=== PATIENT | female | born 1990 | race Caucasian/White ===

== ENCOUNTER → 2016-03-27 | Outpatient (CLI) | payer OTHER ==
[~2016-03-27] MED LIST: MTR600X PO; OXYC-57 PO; PRENTAB26 PO
[2016-03-27 15:00] LABS: URINE APPEARANCE CLEAR (CLEAR); URINE BILIRUBIN NEG (NEG); URINE COLOR YELLOW; URINE EPITHELIAL CELL AUTO >30 /lpf (0-5); URINE NITRITE NEG (NEG); URINE PH 7.5 (4.5-7.5); UROBILINOGEN NEG (NEG)
[2016-03-27 15:09] LABS: MANUAL MICROSCOPIC REQUIRED? NO; REVIEW REQ? NO
== END | disposition home or self-care (01) ==
LOC: C.LABSPEC 13:48
PROVIDERS: ATTEND Obstetrics & Gynecology
DX: Z34.00 Encounter for supervision of normal first pregnancy, unspecified trimester (principal)

== ENCOUNTER → 2016-03-28 | Outpatient (CLI) | payer OTHER | END | disposition home or self-care (01) | LOC: C.PAPS 09:20 | PROVIDERS: ATTEND Obstetrics & Gynecology | DX: Z34.01 Encounter for supervision of normal first pregnancy, first trimester (principal); R87.612 Low grade squamous intraepithelial lesion on cytologic smear of cervix (LGSIL) ==

== ENCOUNTER → 2016-03-28 | Outpatient (CLI) | payer OTHER ==
[2016-03-28 14:41] LABS: BASO % 0.1 %; BASO ABS # 0.01 K/uL (0-0.2); COMPLETE YES; EOS % 1.2 %; HEMATOCRIT 36.6 % (37-47); IG% 0.4 %; LYMPH % 19.3 %; LYMPH ABS # 1.49 K/uL (1.2-3.4); MEAN CELL VOLUME 86.1 fL (80-100); MEAN CORPUSCULAR HEMOGLOBIN 29.2 pg (25-34); MEAN CORPUSCULAR HGB CONC 33.9 g/dl (32-36); MEAN PLATELET VOLUME 12.6 fL (7.4-10.4); MONO % 4.7 %; NEUT % 74.3 %; PLATELET COUNT 230 K/uL (130-400); RED BLOOD COUNT 4.25 M/uL (4.2-5.4); WHITE BLOOD COUNT 7.71 K/uL (4.8-10.8)
[2016-03-31 00:51] LABS: CHLAMYDIA TRACH RNA*** NOT DETECTED (NOT DETECTED); GC (NEIS GONORRHOEAE)RNA** NOT DETECTED (NOT DETECTED)
== END | disposition home or self-care (01) ==
LOC: C.LAB1850 12:40
PROVIDERS: ATTEND Obstetrics & Gynecology
DX: Z34.00 Encounter for supervision of normal first pregnancy, unspecified trimester (principal)

== ENCOUNTER → 2016-06-07 | Outpatient (CLI) | payer OTHER ==
[2016-06-07 12:52] LABS: HEMATOCRIT 34.2 % (37-47)
[2016-06-07 13:16] LABS: GTGD 50 Grams
== END | disposition home or self-care (01) ==
LOC: C.LAB1850 11:39
PROVIDERS: ATTEND Obstetrics & Gynecology
DX: Z34.03 Encounter for supervision of normal first pregnancy, third trimester (principal)

== ENCOUNTER → 2016-06-07 | Outpatient (CLI) | payer OTHER ==
[2016-06-07 15:10] LABS: URINE APPEARANCE CLOUDY (CLEAR); URINE BILIRUBIN NEG (NEG); URINE COLOR YELLOW; URINE EPITHELIAL CELL AUTO >30 /lpf (0-5); URINE NITRITE NEG (NEG); URINE SPECIFIC GRAVITY 1.017 (1.000-1.030); UROBILINOGEN NEG (NEG)
[2016-06-07 15:17] LABS: MANUAL MICROSCOPIC REQUIRED? NO; REVIEW REQ? NO
== END | disposition home or self-care (01) ==
LOC: C.LABSPEC 14:05
PROVIDERS: ATTEND Obstetrics & Gynecology
DX: Z34.03 Encounter for supervision of normal first pregnancy, third trimester (principal)

== ENCOUNTER → 2016-07-30 | Outpatient (CLI) | payer OTHER, BC | END | disposition home or self-care (01) | LOC: C.LABSPEC 17:44 | PROVIDERS: ATTEND Obstetrics & Gynecology | DX: Z34.03 Encounter for supervision of normal first pregnancy, third trimester (principal) ==

== ENCOUNTER 2016-08-27 03:05 | Inpatient (IN) | payer OTHER, BC ==
[~2016-08-27] VITALS: Ht 170.2 cm; Wt 90.5 kg
[2016-08-28] MEDS ORDERED: LACTATED RINGER'S 1000ML 1,000 ML IV PRN (11:48)
[2016-08-28] MEDS ORDERED: PRENTAB26 PO (12:23)
[2016-08-28 12:24] VITALS: Ht 170.2 cm; Wt 90.5 kg
[2016-08-28 12:37] LABS: HEMATOCRIT 36.5 % (37-47); MEAN CELL VOLUME 84.7 fL (80-100); MEAN CORPUSCULAR HEMOGLOBIN 28.1 pg (25-34); MEAN CORPUSCULAR HGB CONC 33.2 g/dl (32-36); PLATELET COUNT 209 K/uL (130-400); RED BLOOD COUNT 4.31 M/uL (4.2-5.4); WHITE BLOOD COUNT 12.21 K/uL (4.8-10.8)
[2016-08-28] MEDS: LACTATED RINGER'S 1000ML 1,000 ML IV SCH ×2 (12:44→19:26)
[2016-08-28] MEDS ORDERED: PENICILLIN G POTASSIUM IV 6 MU in DEXTROSE 5% 250ML 250 ML IV ONE (12:45)
[2016-08-28] MEDS: PENICILLIN G POTASSIUM IV 3 MU in DEXTROSE 5% 100ML 100 ML IV PRN ×2 (16:37→20:35)
[2016-08-28] MEDS ORDERED: BUPIVACAINE 0.25% 30 ML VIAL ONE (18:48)
[2016-08-28] MEDS ORDERED: EpHEDrine SULFATE INJ 50 MG/ML AMP ONE (18:48)
[2016-08-28] MEDS ORDERED: FENTANYL CITRATE INJ 50 MCG/1 ML 2 ML VIAL ONE (18:49)
[2016-08-28] MEDS ORDERED: FENTANYL 2MCG/ML ROPIV 1.25MG/ML 100ML BAG EPI ONE (18:49)
[2016-08-28] MEDS ORDERED: NALOXONE HCL INJ 1 MG in SODIUM CHLORIDE 0.9% 1000ML 1,000 ML IV PRN (19:26)
[2016-08-28] MEDS ORDERED: LACTATED RINGER'S 1000ML 500 ML IV PRN (19:26)
[2016-08-28] MEDS ORDERED: DiphenhydrAMINE HCL 50 MG/ML VIAL IV PRN (19:30)
[2016-08-28] MEDS ORDERED: FENTANYL 2MCG/ML ROPIV 1.25MG/ML 100ML BAG EPI PRN (19:30)
[2016-08-28] MEDS ORDERED: NALOXONE HCL INJ 0.4 MG/1 ML VIAL/CARP IV PRN (19:30)
[2016-08-28] MEDS ORDERED: EpHEDrine SULFATE INJ 50 MG/ML AMP IV PRN (19:30)
[2016-08-28] MEDS ORDERED: NALBUPHINE HCL INJ 10 MG/ML AMP IV PRN (19:30)
[2016-08-28] MEDS ORDERED: ONDANSETRON INJ 2 MG/ML 2 ML VIAL IV PRN (19:30)
[2016-08-28] MEDS ORDERED: OXYTOCIN 30 UNITS/500ML NSS IV ONE (23:06)
[2016-08-29] VITALS (23 sets, daily range): BP systolic 113–124; BP diastolic 61–79; PULSE 74–88; TEMP 36.6–37; O2SAT 94–98
[2016-08-29] MEDS: PENICILLIN G POTASSIUM IV 3 MU in DEXTROSE 5% 100ML 100 ML IV PRN (00:46)
[2016-08-29] MEDS ORDERED: CITRIC ACID/SODIUM CITRATE 15 ML UDC ONE (01:25)
[2016-08-29] MEDS ORDERED: LACTATED RINGER'S 1000ML 1,000 ML IV SCH (01:26)
[2016-08-29] MEDS ORDERED: CITRIC ACID/SODIUM CITRATE 15 ML UDC PO ONE (01:30)
[2016-08-29] MEDS ORDERED: LIDOCAINE/EPINEPHRINE 2% 1:200,000 20 ML SDV ONE (01:32)
[2016-08-29] MEDS ORDERED: FENTANYL CITRATE INJ 50 MCG/1 ML 2 ML VIAL ONE (01:32)
[2016-08-29] MEDS ORDERED: CEFAZOLIN IV 2,000 MG in DEXTROSE 5% 50ML 50 ML IV STA (01:33)
[2016-08-29] MEDS ORDERED: OXYTOCIN INJ 10 UNITS/ML VIAL ONE ×2 (01:33→02:08)
[2016-08-29] MEDS ORDERED: MoRPHine SULFATE PF 1 MG/ML 10 ML AMP/VIAL ONE (01:33)
[2016-08-29] MEDS ORDERED: ONDANSETRON INJ 2 MG/ML 2 ML VIAL ONE (02:08)
[2016-08-29] MEDS ORDERED: PHENYLEPHRINE 100MCG/ML 5ML SYR ONE (02:12)
--- NOTE | 2016-08-29 02:40 | HISTORY & PHYSICAL EXAMINATION ---
DATE OF ADMISSION: 08/29/2016 PRINCIPAL DIAGNOSES: Intrauterine at 40 weeks' gestation, arrest of descent. PRINCIPAL PROCEDURE: Primary low transverse cervical section. HISTORY OF PRESENT ILLNESS: The patient is a 26-year-old G1, P0 white female with EDC of 08/27/2016 who presented with prodromal labor over the evening of 08/28/2016. She presented to the office for her regular OB checkup and was noted to be 6 cm at noon. She progressed slowly over the day. She was trying for an unmedicated . She had finally got an epidural at approximately 2100 hours. Membranes were ruptured at 8-9 cm for clear fluid. She progressed to full dilation and pushed for 3 hours. The presenting part descended to +2 station. Vacuum was attempted through 3 contractions with absolutely no change in the baby's descent. It was felt prudent at this point to proceed with low transverse cervical section. The patient and her understand the procedure and indications and she is willing to proceed. PAST MEDICAL HISTORY: Unremarkable. PAST SURGICAL HISTORY: none ALLERGIES: She has no known drug allergies. MEDICATIONS: vitamins. OBSTETRIC AND GYNECOLOGIC HISTORY: Periods are regular every 28 days. No history of PID, VD or herpes. She did have low-grade FRANCISCO on her Pap smear. SOCIAL HISTORY: She does not smoke or drink. FAMILY HISTORY: Noncontributory. HISTORY: Blood type is O negative, antibody screen is negative, RPR is nonreactive, rubella is immune, hepatitis is negative. HIV is negative. Chlamydia and GC were negative. Anatomy was complete and normal at 20 weeks Hemoglobin at 28 weeks is 11.4 and hematocrit 34.2. She did receive RhoGAM . Her group B strep was positive. She did receive adequate treatment for her group B strep carrier status. PHYSICAL EXAMINATION: GENERAL: She is a well-nourished, well-developed white female in some distress from pushing. LUNGS: Clear to auscultation. HEART: Regular rate and rhythm. ABDOMEN: Gravid and consistent with a term in size. There is no hepatosplenomegaly or masses palpable. PELVIC: The presenting part is at +2 station with caput. There is 1+ edema of the lower extremities and ankles. ASSESSMENT: A 26-year-old, with spontaneous labor at 40 weeks' with arrest of descent at +2 station and failed vacuum. Proceed with low transverse cervical section. Please see the orders for further directions. MTDD
[2016-08-29] MEDS ORDERED: SUPERCREAM 0.870 % 15GM JAR EXT PRN (03:00)
[2016-08-29] MEDS ORDERED: CONTINUE MEDICATION ONE (03:00)
[2016-08-29] MEDS ORDERED: SENNA 8.6 MG TAB PO PRN (03:00)
[2016-08-29] MEDS ORDERED: NO NARCOTICS OR SEDATIVES SCH (03:00)
[2016-08-29] MEDS ORDERED: MoRPHine SULFATE 2 MG/ML CARP IV PRN (03:00)
[2016-08-29] MEDS ORDERED: MoRPHine SULFATE PF 1 MG/ML 10 ML AMP/VIAL EPI PRN (03:00)
[2016-08-29] MEDS ORDERED: MEPERIDINE HCL 25 MG/ML CARP IV PRN (03:00)
[2016-08-29] MEDS ORDERED: MAGNESIUM HYDROXIDE SUSP 30 ML UDC PO PRN (03:00)
[2016-08-29] MEDS ORDERED: LANOLIN OINT EXT PRN ×2 (03:00)
[2016-08-29] MEDS ORDERED: OXYTOCIN INJ 20 UNITS in LACTATED RINGER'S 1000ML 1,000 ML IV SCH (03:30)
[2016-08-29] MEDS ORDERED: EpHEDrine SULFATE INJ 50 MG/ML AMP ONE (03:33)
[2016-08-29] MEDS: KETOROLAC TROMETHAMINE 30 MG/ML VIAL IV. PRN ×2 (06:30→16:24)
[2016-08-29 06:33] LABS: BASO % 0.1 %; BASO ABS # 0.01 K/uL (0-0.2); COMPLETE YES; EOS % 0.1 %; HEMATOCRIT 31.6 % (37-47); IG% 0.3 %; LYMPH % 5.8 %; LYMPH ABS # 1.11 K/uL (1.2-3.4); MEAN CELL VOLUME 83.4 fL (80-100); MEAN CORPUSCULAR HEMOGLOBIN 27.7 pg (25-34); MEAN CORPUSCULAR HGB CONC 33.2 g/dl (32-36); MEAN PLATELET VOLUME 11.8 fL (7.4-10.4); MONO % 5.5 %; NEUT % 88.2 %; PLATELET COUNT 186 K/uL (130-400); RED BLOOD COUNT 3.79 M/uL (4.2-5.4); WHITE BLOOD COUNT 18.99 K/uL (4.8-10.8)
[2016-08-29] MEDS: DOCUSATE SODIUM 100 MG CAP PO SCH ×2 (07:38→20:37)
[2016-08-29] MEDS: PRENATAL VITAMIN TAB PO SCH (07:39)
[2016-08-29] MEDS: SIMETHICONE 80 MG CHEW PO SCH ×4 (07:39→20:37)
--- NOTE | 2016-08-29 07:45 | Progress Note ---
Subjective Aug 29, 2016. Subjective conversation w/ patient, physical exam Voiding: bell catheter in place Passing Gas: Yes Diet Tolerance: Clear Liquids Lochia: Moderate Feeding Type: Breast Feeding Comment: had epidural ascend to cause swallowing difficulty & couldn't move her arms.nausea has resolved. now has full use of arms & legs, can swallow without difficulty Review of Systems Constitutional: No fever, No chills, No sweats, No weight loss, No weakness, No fatigue, No problem reported Breast: No see HPI, No breast lump, No change in shape, No nipple discharge, No breast pain, No problem reported Objective Vital Signs Date Time Temp Pulse Resp B/P (MAP) Pulse Ox O2 Delivery O2 Flow Rate FiO2 08/29/16 05:20 94 Room Air 08/29/16 05:20 37.0 83 18 116/62 (80) 94 Room Air Physical Exam General Appearance: WELL-APPEARING, NO APPARENT DISTRESS Abdomen: soft Fundus: Firm, Non-Tender, Relation to Umbilicus (at U) Incision Description: Clean, Dry & Intact Extremities: no calf tenderness Laboratory Results Last 24 Hours Test 08/28/16 12:23 08/29/16 06:20 White Blood Count 12.21 K/uL 18.99 K/uL Red Blood Count 4.31 M/uL 3.79 M/uL Hemoglobin 12.1 g/dL 10.5 g/dL Hematocrit 36.5 % 31.6 % Mean Corpuscular Volume 84.7 fL 83.4 fL Mean Corpuscular Hemoglobin 28.1 pg 27.7 pg Mean Corpuscular Hemoglobin Concent 33.2 g/dl 33.2 g/dl RDW Standard Deviation 44.3 fL 43.8 fL RDW Coefficient of Variation 14.3 % 14.3 % Platelet Count 209 K/uL 186 K/uL Mean Platelet Volume 12.0 fL 11.8 fL Neutrophils (%) (Auto) 88.2 % Lymphocytes (%) (Auto) 5.8 % Monocytes (%) (Auto) 5.5 % Eosinophils (%) (Auto) 0.1 % Basophils (%) (Auto) 0.1 % Neutrophils # (Auto) 16.75 K/uL Lymphocytes # (Auto) 1.11 K/uL Monocytes # (Auto) 1.05 K/uL Eosinophils # (Auto) 0.01 K/uL Basophils # (Auto) 0.01 K/uL Immature Granulocyte % (Auto) 0.3 % Immature Granulocyte # (Auto) 0.06 K/uL Assessment and Plan Day#: 1 Continue Routine Care: stable course s/p LTCS at 0100 last night GBS (+) continue current care plan.
--- NOTE | 2016-08-29 09:11 | OPERATIVE REPORT ---
DATE OF OPERATION: 08/29/2016 SURGEON: Luisa Mei MD ORGAN TUNER: Lara Buckley RN. PREOPERATIVE DIAGNOSES: Intrauterine at 40 weeks and arrest of descent. POSTOPERATIVE DIAGNOSES: Same plus delivery of a viable female , 7 pounds 6 ounces. PRINCIPAL PROCEDURE: Primary low transverse cervical section. ANESTHESIA: Epidural. BLOOD LOSS: 600 mL. HISTORY: The patient is a 26-year-old G1, P0 white female, EDC of 08/27/2016, who presented to our office for her scheduled OB visit and was found to be 6-7 cm dilated. This was at noon on 08/28/2016. She was planning a unmedicated . Her members had not ruptured. She was GBS positive and she did receive adequate prophylaxis for her GBS positive status. She progressed 8 cm dilated and requested epidural analgesia. Membranes were ruptured for clear fluid at this point. She then progressed to full dilation. She pushed for 3 hours. The vertex did not descent below +2 station. Vacuum was applied without any popoffs through 3 contractions with no change in the descent of the head. At this point, it was felt prudent to proceed with section. This was discussed with the and the patient and they are willing to proceed. GROSS FINDINGS: Uterus is gravid and consistent with a term in size. Bilateral fallopian tubes and ovaries are grossly normal. Uterus is gravid and without any abnormalities. DESCRIPTION OF PROCEDURE: After the patient received adequate epidural anesthesia, she was prepped and draped in the usual sterile fashion. A low transverse skin incision was made with the scalpel and carried to the fascia with the same scalpel. The fascial incision was then extended with Cesar scissors. The edges were grasped with Carey clamps and the underlying rectus muscles bluntly and sharply dissected off the overlying fascia. The rectus muscles were bluntly divided along the midline and the underlying peritoneum elevated and entered bluntly. The bladder was then taken down off the anterior surface of the uterus using Metzenbaum scissors and placed behind the bladder blade. The lower uterine segment was entered with a scalpel and extended transversely. The infant was in the deep pelvis and transverse position, occiput to the patient's left. It was brought up through to the uterine incision and delivered with moderate fundal pressure. Mouth and nasopharynx were suctioned upon delivery. Cord was clamped and cut and the infant was handed off to Dr. Alvarado, who was in attendance as photovoltaic solar cell designer. The placenta was manually removed and the uterus exteriorized and covered with a clean lap sponge. Some retained membranes were removed. The rest of the uterine cavity was noted to be clear of any other tissue or membranes. The uterus was then closed in 2 layers in a running locking imbricating fashion. There was slight extension inferiorly on the right side of the uterine incision. Additional [id number] stitch at the right corner was needed to assure hemostasis. At this point, hemostasis was noted to be excellent. The posterior cul-de-sac was irrigated with normal saline. The incision was examined once more and found to continue to have excellent hemostasis. The gutters were explored and found to be free of any clot or fluid. The incision was examined once more after the uterus was placed back into the abdominal cavity and hemostasis continued to be excellent. The rectus muscles were brought together in the midline with individual stitches of 0 Monocryl. The fascia was closed in a running fashion with 0 Vicryl. Skin edges were reapproximated using a subcuticular stitch of 4-0 Vicryl. Urine was slightly pink tinge at the end of the case. Otherwise, there was 100 mL of urine in the Raymond catheter bag. Mother and were doing well after delivery. I attest to the content of the Intraoperative Record and any orders documented therein. Any exception s are noted below.
--- NOTE | 2016-08-29 11:01 | Anesthesiology Progress Note ---
Anesthesia Post Op Note Date & Time Aug 29, 2016 at 11:01 Vital Signs Pain Intensity: 0.0 Vital Signs Past 12 Hours Date Time Temp Pulse Resp B/P (MAP) Pulse Ox O2 Delivery O2 Flow Rate FiO2 08/29/16 09:47 18 97 Room Air 08/29/16 09:00 36.8 76 16 124/62 (82) 96 Room Air 08/29/16 07:30 96 Room Air 08/29/16 05:20 94 Room Air 08/29/16 05:20 37.0 83 18 116/62 (80) 94 Room Air Notes Mental Status: alert / awake / arousable, participated in evaluation Pt Amnestic to Procedure: Yes Nausea / Vomiting: adequately controlled Pain: adequately controlled Airway Patency, RR, SpO2: stable & adequate BP & HR: stable & adequate Hydration State: stable & adequate Neuraxial Anesthesia: was administered, sensory block resolved Anesthetic Complications: no major complications apparent
[2016-08-29] MEDS: LACTATED RINGER'S 1000ML 1,000 ML IV SCH (19:48)
[2016-08-29] MEDS ORDERED: PROMETHAZINE HCL INJ 25 MG in SODIUM CHLORIDE 0.9% 50ML 50 ML IV PRN (22:00)
[2016-08-29] MEDS ORDERED: ONDANSETRON INJ 2 MG/ML 2 ML VIAL IV PRN (22:00)
[2016-08-29] MEDS ORDERED: DiphenhydrAMINE HCL 50 MG/ML VIAL IV PRN (22:00)
[2016-08-29] MEDS ORDERED: BISACODYL 5 MG TABEC PO ONE (22:00)
[2016-08-29] MEDS ORDERED: DC INTRASPINAL MORPHINE PRN (22:00)
[2016-08-29] MEDS ORDERED: MEPERIDINE HCL 50 MG/ML CARP IV PRN ×2 (22:00)
[2016-08-29] MEDS ORDERED: ZOLPIDEM TARTRATE 5 MG TAB PO PRN (22:00)
[2016-08-29] MEDS ORDERED: KETOROLAC TROMETHAMINE 30 MG/ML VIAL IV. PRN (22:00)
[2016-08-30] MEDS: OXYCODONE/ACETAMINOPHEN 5-325 TAB PO PRN ×2 (06:08→16:44)
[2016-08-30 06:35] LABS: HEMATOCRIT 32.5 % (37-47)
[2016-08-30 07:30] VITALS: BP 116/74; PULSE 71; TEMP 36.7; O2SAT 97
[2016-08-30 07:50] VITALS: O2SAT 97
--- NOTE | 2016-08-30 08:12 | Progress Note ---
Subjective Aug 30, 2016. Subjective conversation w/ patient, physical exam Ambulation: ambulating normally Voiding: no voiding problems Passing Gas: Yes Diet Tolerance: Regular Diet Lochia: Moderate Feeding Type: Breast Feeding Review of Systems Constitutional: No fever, No chills Respiratory: No cough Cardiac: No chest pain Abdomen: No nausea, No vomiting Objective Vital Signs Date Time Temp Pulse Resp B/P (MAP) Pulse Ox O2 Delivery O2 Flow Rate FiO2 08/29/16 23:15 98 Room Air 08/29/16 23:15 36.7 74 18 121/79 (93) 98 Room Air 08/29/16 22:00 18 98 08/29/16 21:00 16 97 08/29/16 20:30 36.6 88 16 113/74 (87) 97 Room Air 08/29/16 19:00 16 97 08/29/16 18:00 18 96 08/29/16 17:23 18 97 08/29/16 16:00 97 Room Air 08/29/16 16:00 18 97 08/29/16 15:00 20 97 08/29/16 15:00 16 97 08/29/16 14:48 37.0 87 16 114/61 (78) 97 Room Air 08/29/16 14:00 16 96 08/29/16 13:00 18 97 08/29/16 12:00 20 96 08/29/16 11:45 37.0 83 20 117/73 (88) 96 Room Air 08/29/16 11:00 22 95 08/29/16 10:00 12 95 08/29/16 09:47 18 97 Room Air 08/29/16 09:00 36.8 76 16 124/62 (82) 96 Room Air 08/29/16 09:00 18 97 Physical Exam General Appearance: WELL-APPEARING, NO APPARENT DISTRESS Respiratory/Chest: no respiratory distress, no accessory muscle use Cardiovascular: no edema Abdomen: non tender, soft Fundus: Firm Incision Description: Clean, Dry & Intact (dermabond intact) Extremities: no calf tenderness Laboratory Results Last 24 Hours Test 08/30/16 06:17 Hemoglobin 10.4 g/dL Hematocrit 32.5 % Assessment and Plan Day#: 1
[2016-08-30] MEDS: DOCUSATE SODIUM 100 MG CAP PO SCH ×2 (08:50→20:18)
[2016-08-30] MEDS: SIMETHICONE 80 MG CHEW PO SCH ×4 (08:50→20:18)
[2016-08-30] MEDS: PRENATAL VITAMIN TAB PO SCH (08:50)
[2016-08-30] MEDS: IBUPROFEN 600 MG TAB PO PRN ×2 (14:00→23:49)
[2016-08-30 16:20] VITALS: BP 118/75; PULSE 71; TEMP 37.1; O2SAT 98
[2016-08-31] VITALS: BP 122/73; PULSE 69; TEMP 36.9
--- NOTE | 2016-08-31 07:20 | Progress Note ---
Subjective Aug 31, 2016. Subjective conversation w/ patient, physical exam Ambulation: ambulating normally Voiding: no voiding problems Passing Gas: Yes Diet Tolerance: Regular Diet Lochia: Moderate Feeding Type: Breast Feeding Pain: controlled Review of Systems Constitutional: No problem reported Respiratory: No problem reported Cardiac: No problem reported Breast: No problem reported Abdomen: No problem reported Female : No problem reported Objective Vital Signs Date Time Temp Pulse Resp B/P (MAP) Pulse Ox O2 Delivery O2 Flow Rate FiO2 08/31/16 00:00 Room Air 08/31/16 00:00 36.9 69 18 122/73 (89) 08/30/16 16:20 37.1 71 118/75 (89) 08/30/16 16:20 98 Room Air 08/30/16 07:50 97 Room Air 08/30/16 07:30 36.7 71 16 116/74 (88) 97 Room Air Physical Exam General Appearance: WELL-APPEARING, NO APPARENT DISTRESS Respiratory/Chest: normal breath sounds, no respiratory distress Cardiovascular: regular rate, rhythm Abdomen: non tender, soft Fundus: Firm Incision Description: Clean, Dry & Intact Extremities: normal inspection, no pedal edema, no calf tenderness Assessment and Plan Post-Op Day#: 2 Continue Routine Care: POD#2 s/p PLTCS - doing well. Continue routine postop care.
[2016-08-31] MEDS: DOCUSATE SODIUM 100 MG CAP PO SCH ×2 (08:22→20:21)
[2016-08-31] MEDS: SIMETHICONE 80 MG CHEW PO SCH ×4 (08:22→20:21)
[2016-08-31] MEDS: PRENATAL VITAMIN TAB PO SCH (08:22)
[2016-08-31] MEDS: IBUPROFEN 600 MG TAB PO PRN ×2 (08:23→15:27)
[2016-08-31 09:23] VITALS: BP 133/78; PULSE 75; TEMP 36.6; O2SAT 97
[2016-08-31 15:50] VITALS: BP 126/75; PULSE 73; TEMP 37.2; O2SAT 98
[2016-08-31 23:30] VITALS: BP 123/78; PULSE 71; TEMP 36.5
[2016-09-01] MEDS: IBUPROFEN 600 MG TAB PO PRN ×2 (02:14→16:10)
--- NOTE | 2016-09-01 07:23 | Progress Note ---
Subjective Sep 01, 2016. Subjective conversation w/ patient, physical exam Ambulation: ambulating normally Voiding: no voiding problems Passing Gas: Yes Diet Tolerance: Regular Diet Lochia: Small Feeding Type: Breast Feeding Pain: pain control good Objective Vital Signs Date Time Temp Pulse Resp B/P (MAP) Pulse Ox O2 Delivery O2 Flow Rate FiO2 08/31/16 23:30 36.5 71 18 123/78 (93) Room Air 08/31/16 23:30 Room Air 08/31/16 15:50 37.2 73 16 126/75 (92) 98 Room Air 08/31/16 15:50 98 Room Air 08/31/16 09:23 36.6 75 16 133/78 (96) 97 Room Air 08/31/16 08:20 Room Air Physical Exam General Appearance: WELL-APPEARING, WD/WN, NO APPARENT DISTRESS Respiratory/Chest: lungs clear Cardiovascular: regular rate, rhythm Abdomen: non tender, soft Fundus: Firm, Relation to Umbilicus (2 down) Incision Description: Clean, Dry & Intact Extremities: non-tender Assessment and Plan Post-, Post-Op Day#: 4 Continue Routine Care: stable, d/c home to [facility]. instructions reviewed. f/u 6wks.
[2016-09-01] MEDS ORDERED: MTR600X PO (07:26)
[2016-09-01] MEDS ORDERED: OXYC-57 PO (07:26)
--- NOTE | 2016-09-01 07:27 | Discharge Instructions ---
Discharge Instructions Date of Service Sep 01, 2016. Admission Reason for Admission: Normal Labor Discharge Discharge Diagnosis / Problem: after delivery Discharge Goals Goal(s): Routine recovery after Medications Continue Dispensed Medications: supercream, dermaplast, tucks, lansinoh Activity Recommendations Activity Limitations: as noted below . Instructions / Follow-Up Instructions / Follow-Up ACTIVITY RECOMMENDATIONS: * Gradual return to full activity over the next 2-3 weeks. * No lifting - nothing heavier than baby over the next 2-3 weeks. * Do not engage in vigorous exercise, sexual activity or sports until cleared by your physician. * Do not drive or operate any motorized equipment until cleared by your physician. * You may shower/bathe daily. MEDICATIONS: For discomfort or pain, you may use Acetaminophen (Tylenol), Ibuprofen (Advil), or Naproxen (Aleve) following the package directions. For constipation you may use Colace following the package directions. BREAST CARE: If you are not breast feeding: * Wear a supportive bra 24 hours a day for one to two weeks. * Avoid stimulating your breasts and nipples as much as possible during the first few weeks after delivery. * When taking a shower, have the warm water hit your back, not breasts. * When your breasts feel full, apply ice packs. Usually three to four times a day helps ease the discomfort. * Take a mild pain medication (Tylenol / Motrin) when you are uncomfortable. If breast feeding: * Use breast milk to lubricate nipples. Lansinoh cream may be used for sore nipples. You do not need to remove cream prior to breast feeding. If using a different brand of cream, check the label for directions regarding removal of cream prior to nursing. * Wear a supportive bra. * If having problems with breasts or breast feeding, call a assessment consultant or your health care provider. SPECIAL CARE INSTRUCTIONS: When you are discharged from the hospital, it is important for you to follow the instructions listed below: * During the first week at home, you should be able to care for yourself and your baby. In addition, the usual light household activities are encouraged. * Limit your activities to the way you feel. Do not try to clean the house or move furniture. Be sensible. * If you actively engage in sports and have done so up until the time of your delivery, you may resume these activities as soon as you feel able. This may take up to one month or even longer. Use good judgment. * Continue to take your vitamins for at least six weeks after the of your baby. * Your diet need not be limited unless you were on a special diet before your delivery. Breast-feeding mothers need around 2500 calories per day and at least 64-80 ounces of fluid per day (8 to 10 glasses). * You should eat foods from the four major food groups. Crash diets or fad diets are to be avoided. Eating lean meats, fresh fruits and vegetables, low-fat dairy products, high fiber foods and a regular exercise program, will help you get back to your pre- weight without putting your health at risk. * Constipation is sometimes a problem after delivery. Take a mild laxative as needed. If breast feeding, Milk of Magnesia is acceptable to use. You may use a suppository or Fleets enema. * A daily shower or tub bath is suggested. Wash incision daily with warm soapy water and pat dry. It doesn't need to be covered unless drainage is present. * A bloody vaginal discharge will usually continue until around four weeks . A small amount of bleeding may continue for as long as six weeks. Vaginal discharge changes from the bright red bleeding after delivery to pink then brownish and finally yellowish-pink before becoming white and disappearing. * Bleeding may increase with activity. Your first period may come in 4-8 weeks. If you are breast feeding, your period may be delayed even longer. * [place] (sex) can begin whenever both you and your partner feel comfortable and do not have any form of genital infection. It is recommended that you wait at least six weeks for internal and external healing to occur. If you have questions, please talk to your health care practitioner. A condom should be used to prevent infection and . * Foreplay, gentle intercourse and lubrication is very important the first several times to prevent pain. A water-based lubricant such as K-Y jelly or Astroglide may be used. * If you have RH negative blood and your baby is RH positive, you will receive RHOGAM by injection prior to discharge. The nurse will give you a card to keep with you that has the date and place that you received RHOGAM after delivery. * During your care, you had a Rubella screen done to check for the presence of rubella antibodies in your blood. If your test was negative, you will receive a Rubella vaccine prior to discharge. This vaccine may cause a fever, soreness at the injection site and flu-like symptoms. If these symptoms persist, notify your health care practitioner. is not advised for one month after a Rubella vaccine. * Verbalizes understanding of car seat law as reviewed with patient nursing. * Car Seat hand-out given and reviewed with patient by nursing. * Shaken baby information reviewed with patient by nursing. Call you doctor if: * Heavy bleeding (saturating several pads an hour) or passing clots the size of your fist. * A fever >101 degrees F (38.3 degrees C) on two occasions four hours apart and /or chills. * Unusual pain in the pelvic or vaginal areas. * Call the doctor for any increased redness, drainage or swelling around the incision and any pain unrelieved by prescribed pain medication. * "Baby Blues" lasting longer than two weeks. If you have any questions or concerns, call your health care practitioner at . FOLLOW UP VISIT: * Please call the office at to schedule a 6 week examination. It is important you keep this appointment. It is important for you to make arrangements for either yearly or twice yearly check-ups thereafter. Current Hospital Diet Patient's current hospital diet: Regular Diet Discharge Diet Recommended Diet: Regular Diet Procedures Procedures Performed: Primary Caesarean Section for delivery of a live female child at 0206 Pending Studies Studies pending at discharge: no Medical Emergencies . Who to Call and When: Medical Emergencies: If at any time you feel your situation is an emergency, please call [phone] immediately. . Non-Emergent Contact Non-Emergency issues call your: Medical Terminologist . . "Provider Documentation" section prepared by Lissette Gardner. . VTE Core Measure Inpt VTE Proph given/why not?: Treatment not indicated [place] Drug Monitoring Program Search Results: patient reviewed within database, no issues identified
[2016-09-01] MEDS: DOCUSATE SODIUM 100 MG CAP PO SCH (07:41)
[2016-09-01] MEDS: PRENATAL VITAMIN TAB PO SCH (07:41)
[2016-09-01] MEDS: SIMETHICONE 80 MG CHEW PO SCH ×3 (07:41→18:15)
[2016-09-01 07:43] VITALS: BP 128/85; PULSE 81; TEMP 36.9
[2016-09-01 16:00] VITALS: BP 123/82; PULSE 61; TEMP 36.9
[2016-09-01 17:12] VITALS: BP_DIAS 82; PULSE 61; TEMP 36.9
--- NOTE | 2016-09-10 13:31 | Discharge Summary ---
Discharge Summary Date of Service Sep 10, 2016. Discharge Summary The patient is a 26-year-old white female who presented in active labor on the morning of 08/29/2016. She progressed to full dilation although active phase was prolonged. She pushed for 3 hours with minimal descent. Vacuum application was attempted through 3 contractions with no pop offs. There was no further descent of the head. She was taken for section where the 's head appeared to be in the occiput transverse presentation. There was an extension inferiorly along the right lower uterine segment. Of the uterine incision. Her post op course was uncomplicated. She remained afebrile through her hospital stay. She was eating regular diet and ambulating without difficulty on her first postop day. Pain was well controlled with oral medication. Hemoglobin on admission was 12.4 and second postop day hemoglobin was 10.4. She was sent home with the usual postop and instructions. She is to call for temperature 100.1 degrees or higher burning with urination, heavy vaginal bleeding, increased redness or drainage or pain in her incision, calf tenderness, or any other concerns. She is being sent home with prescriptions for Percocet 1-2 tablets every 4 hours as needed and ibuprofen 600 mg every 4-6 hours as needed for pain. She is to be seen in the office in 6 weeks for follow-up checkup.
== END 2016-09-01 18:24 | disposition home or self-care (01) | DRG 766 ==
LOC: C.LD 08-28 11:50 → C.OBG 08-29 05:18
PROVIDERS: ADMIT Obstetrics & Gynecology; ATTEND Obstetrics & Gynecology
PROC: 10D00Z1 Extraction of Products of Conception, Low, Open Approach (ICD-10-PCS; principal; 2016-08-29 01:29)
DX: O32.4XX0 Maternal care for high head at term, not applicable or unspecified (principal); O66.5 Attempted application of vacuum extractor and forceps; Z22.330 Carrier of Group B streptococcus; Z3A.40 40 weeks gestation of pregnancy; Z37.0 Single live birth

== ENCOUNTER → 2016-11-14 | Outpatient (CLI) | payer BC ==
[2016-11-17 00:33] LABS: CHLAMYDIA TRACH RNA*** NOT DETECTED (NOT DETECTED); GC (NEIS GONORRHOEAE)RNA** NOT DETECTED (NOT DETECTED)
== END | disposition home or self-care (01) ==
LOC: C.LABSPEC 14:26
PROVIDERS: ATTEND Physician Assistant
DX: Z30.430 Encounter for insertion of intrauterine contraceptive device (principal)

== ENCOUNTER 2021-06-23 05:29 | Inpatient (IN) ==
--- NOTE | 2021-06-20 13:56 | Anesthesiology Consultation ---
Date of Service June 20, 2021 Assessment & Plan (1) Encounter for pre-operative examination: COVID screening: Per assessment on 06/20: No known COVID-19 positive contacts or current COVID-19 related symptoms. Travel screen negative. Patient vaccinated. Surgeon arranging preop COVID testing. Awaiting results. Chart Review Chart Review: secondary school registrar initiated History Surgery Operation Date: 06/23/21 07:30 Proposed Procedures p Section in LD (Delivery of Baby through Abdominal Incision) - Vania Nj MD, FACOG s Post Tubal Ligation Labor & Delivery - Vania Nj MD, FACOG Height/Weight Height: 5 ft 7.5 in Weight: 99.79 kg Allergies Allergy/AdvReac Type Severity Reaction Status Date / Time No Known Allergies Allergy Verified 06/20/21 13:20 Medications Home Medications Medication Instructions Recorded Confirmed Last Taken prenat.vits,murphy,[id number] 1 tab PO QAM 11/17/20 06/20/21 Unknown breast pump #1 ea 06/16/21 06/16/21 Unknown Past Medical History Medical History LGSIL on Pap smear of cervix Past Family History Family History Other Endometriosis Heart disease Hypertension No known health problems Denies family history of Ovarian cancer Prostate cancer Breast cancer Colorectal cancer Past Surgical History Surgical History History of delivery Social History Smoking Status: Never smoker Do You Dip or Chew Tobacco: No Hx Alcohol Use: No Hx Substance Use: No
--- NOTE | 2021-06-22 19:07 | History & Physical Report ---
Date of Service June 22, 2021 Assessment & Plan (1) Previous section complicating : Plan: Repeat section. The patient was counseled to the nature of the procedure including alternatives such as labor. Risks were discussed including bleeding infection injury to bowel bladder ureter vessels and even baby. The risks of internal organ injury were discussed as being higher with prior sections. Deep Vein Thrombosis, pulmonary embol us and breakdown of the incision discussed. Deep vein thrombosis pulmonary embolus hernia and failure of the incision to heal were discussed Patient verbalized understanding of this and was given ample time to ask questions History of Present Illness Primary Care Provider: NO PCP Allergies Allergy/AdvReac Type Severity Reaction Status Date / Time No Known Allergies Allergy Verified 06/21/21 09:16 Home Medications Medication Instructions Recorded Confirmed Type prenat.vits,murphy,xkg-xyna-mapit 1 tab PO QAM 11/17/20 06/21/21 History breast pump #1 ea 06/16/21 06/21/21 Rx Patient History Medical History LGSIL on Pap smear of cervix Surgical History History of delivery Family History Other Endometriosis Heart disease Hypertension No known health problems Denies family history of Ovarian cancer Prostate cancer Breast cancer Colorectal cancer Social History (Updated 06/20/21 @ 13:32 by Mansi Springer RN) Smoking Status: Never smoker Second Hand Exposure: No; Hx Alcohol Use: No Hx Substance Use: No Preferred Language: Uzbek Visual Impairment: No Limitations Hearing Ability: Normal Road Passenger Firer Required: No Beliefs That Will Affect Care: None marital status: marital status details: Truman Morales ([phone] Current Living Situation: Spouse and Family Current Living Situation Comment: lives with SPOUSE, DAUGHTER,1 dog, 1 cat FOB changing litter current occupational status: unemployed current occupation: [employer] Feels Safe at Home: Yes Assistive Devices: None Review of Systems as per Subjective / HPI Physical Exam Constitutional: WD/WN, vitals as above well developed and well nourished Respiratory: normal respiratory effort, lungs clear to auscultation normal respiratory effort Cardiovascular: RRR, no murmur, no edema Gastrointestinal (Abdomen): normal bowel sounds, soft, nontender, no hepatosplenomegaly Coding Level of Care Code None Diagnoses Previous section complicating O34.219
[2021-06-23] MEDS ORDERED: LACTATED RINGER'S 1,000 ML IV SCH ×3 (05:30→09:00)
[2021-06-23] MEDS ORDERED: CITRIC ACID/SODIUM CITRATE 15 ML UDC PO SCH (06:00)
[2021-06-23] MEDS ORDERED: ceFAZolin 2,000 MG in SYRINGE 0 ML IV SCH (06:00)
[2021-06-23] MEDS ORDERED: ceFAZolin 2000MG 2,000 MG/15 ML SYR IV SCH (06:00)
[2021-06-23 06:54] LABS: Basophils # (auto) 0.02 K/uL (0-0.2); Basophils % (auto) 0.2 %; Eosinophils # (auto) 0.12 K/uL (0-0.5); Eosinophils % (auto) 1.4 %; Hematocrit (blood only) 33.5 % (37-47); Hemoglobin 10.9 g/dL (12.0-16.0); Immature Granulocytes # (auto) 0.03 K/uL (0.00-0.02); Immature Granulocytes % (auto) 0.4 %; Lymphocytes # (auto) 1.54 K/uL (1.2-3.4); Lymphocytes % (auto) 18.2 %; Mean Corpuscular Hemoglobin 27.9 pg (25-34); Mean Corpuscular Hgb Conc 32.5 g/dL (32-36); Mean Corpuscular Volume 85.9 fL (80-100); Monocytes # (auto) 0.55 K/uL (0.11-0.59); Monocytes % (auto) 6.5 %; Neutrophils # (auto) 6.22 K/uL (1.4-6.5); Neutrophils % (auto) 73.3 %; Platelet Count 231 K/uL (130-400); RDW Coefficient of Variation 14.3 % (11.5-14.5); RDW Standard Deviation 44.7 fL (36.4-46.3); White Blood Count 8.48 K/uL (4.8-10.8)
--- NOTE | 2021-06-23 07:04 | History & Physical Bridge Note ---
Date of Service June 23, 2021 History & Physical Bridge Note I have examined the patient, reviewed the History & Physical and in the interval since the performance of the History & Physical I have noted the following changes of clinical significance: no changes noted
[2021-06-23] MEDS ORDERED: MoRPHine SULFATE PF 1 MG/ML 10 ML AMP/VIAL ONE (07:24)
[2021-06-23] MEDS ORDERED: diphenhydrAMINE 50 MG/ML VIAL IV PRN ×2 (08:14→08:49)
[2021-06-23] MEDS ORDERED: LACTATED RINGER'S 500 ML IV PRN (08:14)
[2021-06-23] MEDS ORDERED: MoRPHine SULFATE PF 1 MG/ML 10 ML AMP/VIAL INT SPINAL ONE (08:14)
[2021-06-23] MEDS ORDERED: ePHEDrine sulfate 50 MG/ML AMP IV PRN ×2 (08:14→08:15)
[2021-06-23] MEDS ORDERED: NALOXONE HCL 0.4 MG/1 ML VIAL/CARP IV PRN (08:14)
[2021-06-23] MEDS ORDERED: NALBUPHINE HCL INJ 10 MG/ML AMP IV PRN (08:14)
[2021-06-23] MEDS ORDERED: NALOXONE HCL 1 MG in SODIUM CHLORIDE 0.9% 1000ML 1,000 ML IV PRN (08:14)
[2021-06-23] MEDS ORDERED: ONDANSETRON INJ 2 MG/ML 2 ML VIAL IV PRN ×2 (08:14→08:15)
[2021-06-23] MEDS ORDERED: HYDROmorphone INJ 0.5 MG/0.5 ML SYR IV PRN (08:14)
[2021-06-23] MEDS ORDERED: NALOXONE HCL 0.08 MG in SYRINGE 1.8 ML IV PRN (08:14)
[2021-06-23] MEDS ORDERED: SODIUM CHLORIDE 0.9% 1000ML 1,000 ML IV SCH (08:15)
[2021-06-23] MEDS ORDERED: NO NARCOTICS OR SEDATIVES SCH (08:15)
[2021-06-23] MEDS ORDERED: fentaNYL citrate 100 MCG/2 ML VIAL IV PRN (08:15)
[2021-06-23] MEDS ORDERED: DC INTRASPINAL MORPHINE SCH (08:15)
[2021-06-23] MEDS ORDERED: ATROPINE SULFATE 0.1 MG/ML 10ML SYR IV PRN (08:15)
[2021-06-23] MEDS ORDERED: PROMETHAZINE HCL 12.5 MG in SODIUM CHLORIDE 0.9% 50 ML IV PRN (08:15)
[2021-06-23] MEDS ORDERED: HYDROmorphone INJ 2 MG/ML SYR/VIAL IV PRN (08:15)
[2021-06-23] MEDS ORDERED: OXYTOCIN 10 UNITS/ML 10ML VIAL ONE ×2 (08:38→08:39)
[2021-06-23] MEDS ORDERED: ePHEDrine sulfate 50 MG/ML SYR ONE (08:38)
[2021-06-23] MEDS ORDERED: PHENYLEPHRINE 100MCG/ML 5ML SYR ONE (08:38)
[2021-06-23] MEDS ORDERED: BENZOCAINE 20% AER SPR 82.5 GM CAN EXT PRN (08:49)
[2021-06-23] MEDS ORDERED: MEPERIDINE HCL 50 MG/ML CARP IV PRN (08:49)
[2021-06-23] MEDS ORDERED: SENNA 8.6 MG TAB PO PRN (08:49)
[2021-06-23] MEDS ORDERED: DIPHTHERIA/TETANUS/PERTUSSIS 0.5 ML SYR/VIAL IM ONE (08:49)
[2021-06-23] MEDS ORDERED: HYDROCORTISONE ACETATE 25 MG SUPP PR PRN (08:49)
[2021-06-23] MEDS ORDERED: MAGNESIUM HYDROXIDE SUSP 30 ML UDC PO PRN (08:49)
[2021-06-23] MEDS ORDERED: diphenhydrAMINE Capsule 25 MG CAP PO PRN (08:49)
--- NOTE | 2021-06-23 08:50 | Operative Report ---
PG Post Operative Report Pre & Post Diagnosis Operation Date: 06/23/21 07:30 Pre-Op Diagnosis: intrauterine desires repeat section desires permanent sterilization Post-Op Diagnosis: same I identified the patient and participated in the time-out.: Yes Procedure Operation Date: 06/23/21 07:30 Actual Procedures p Section in LD for live male at 0808 - Vania Nj MD, FACOG Surgeon Vania Nj MD, FACOG Claims Collector Dr. Gardner Estimated Blood Loss 500 Findings Consistent with Post-Op Diagnosis Specimens Cord blood bilateral segments of fallopian tube Description of Procedure Regional anesthetic had been given by anesthesia patient was prepped and draped with a leftward tilt preoperative antibiotics had been given in appropriate timing by anesthesiology. Once the prep was allowed to fully dry timeout was performed. Pickups with teeth were used to test the incision area was found to be adequate for incision as the patient did not feel sharp pain. Scalpel was used to make a Pfannenstiel incision on the lower abdomen. We then cut through the subcutaneous fat down to the level of the anterior rectus sheath fascia this was cut in the midline and then extended laterally with the curved Cesar scissors. At this stage we then placed 2 Carey clamps on the anterior aspect of the fascia. Using the curved Cesar's we are able to dissect the fascia superiorly away from the rectus muscles. Care was taken to maintain hemostasis. Carey clamps were then placed to the inferior aspect of the anterior sheath of the fascia. Fascia was then dissected away from the rectus muscles inferiorly towards the pubic bone. A Carey was then placed in the midline both inferiorly and superiorly. This was to allow exposure by retraction rectus muscles were in the midline with were then able to cut through the peritoneum and then enter the peritoneal cavity. Opening was enlarged to allow exposure of the peritoneal cavity both superiorly and inferiorly. Once adequate space was obtained a bladder retractor was placed to expose the lower segment Metzenbaums were used to dissect the bladder flap inferiorly away from the uterus. This was done sharply bladder retractor was then repositioned to expose the lower segment of the uterus Fresh scalpel was used to make a low transverse incision on the uterus. Uterus was then entered bluntly with the operators finger, membranes ruptured and the opening was enlarged using the operators fingers bluntly pulling superiorly and inferiorly to allow exposure. Baby was delivered by first flexion of the head elevation of the head out of the pelvis and then pressure by the assistant county attorney on the maternal abdomen. Baby's head was then delivered mouth and then nares were suctioned and then using gentle traction the baby was fully delivered. Live vigorous . Fluid was clear cord clamped and cut cord gases obtained cord blood obtained baby handed to pediatrics. Placenta removed was removed with traction we ensure the entire placenta was removed with a moist lap sponge into the uterus. Loose nuchal passed over baby's head Uterus was then exteriorized. IV Pitocin had been started by anesthesia tone improved there were no extensions the uterus was then closed using 0 Monocryl in a 2 layer closure the first layer closed in a running locked fashion from left to right and then a second closure from left to right in a running nonlocked fashion. At this stage hemostasis was excellent. Patient requested tubal ligation some on the right isthmic portion of the fallopian tube a Radha is used to grasp this using chromic suture the tube was tied on both the proximal and distal ends and then tied in a second loop around as well inferior to this. Tube was then cut with Metzenbaums tube sample sent to pathology portion of right fallopian tube hemostasis was excellent The exact same process repeated on the left side when the uterus was placed back in the peritoneal cavity the tubal sites were inspected and found to be hemostatic Uterus was placed back in the peritoneal cavity with suction irrigation out and inspection of the uterus at this stage revealed excellent hemostasis Retractors were removed urine color was clear at this stage of the case we inspected the rectus muscles they were hemostatic fascia was closed with 0 Vicryl subcutaneous fat was irrigated and closed with 3-0 Vicryl skin closed with 4-0 subcuticular Monocryl I attest to the content of the Intraoperative Record and any orders documented therein. Any exceptions are noted below. OB Procedure Charges 39694
--- NOTE | 2021-06-23 10:21 | Anesthesiology Progress Note ---
Date of Service June 23, 2021 Anesthesia Post Procedure Vital Signs Vital Signs: Temp Pulse Resp BP Pulse Ox 06/23/21 10:15 74 97 06/23/21 10:11 95 H 118/72 06/23/21 10:10 88 98 06/23/21 10:05 76 97 06/23/21 10:01 71 132/63 06/23/21 10:00 71 97 06/23/21 09:55 73 98 06/23/21 09:51 70 120/59 L 06/23/21 09:50 36.3 C L 69 18 98 06/23/21 09:45 69 98 06/23/21 09:41 62 122/58 L 06/23/21 09:40 36.3 C L 64 18 98 06/23/21 09:35 67 98 06/23/21 09:31 67 111/64 06/23/21 09:30 36.4 C L 72 18 99 06/23/21 09:25 72 98 06/23/21 09:21 74 107/58 L 06/23/21 09:20 36.3 C L 73 18 99 06/23/21 09:15 70 99 06/23/21 09:11 70 107/58 L 06/23/21 09:10 36.4 C L 69 18 99 06/23/21 09:05 82 99 06/23/21 09:01 68 109/57 L 06/23/21 09:00 36.4 C L 76 18 100 06/23/21 08:55 72 98 06/23/21 08:50 36.5 C 80 20 111/62 98 06/23/21 08:45 86 115/56 L 97 06/23/21 05:49 36.6 C 95 H 18 125/68 06/23/21 05:42 36.6 C 95 H 18 125/68 Transfer of Care Handoff Completed per policy Notes Mental Status: alert / awake / arousable and participated in evaluation Patient Amnestic to Procedure: Yes Nausea / Vomiting: adequately controlled Pain: adequately controlled Airway Patency, RR, SpO2: stable & adequate BP & HR: stable & adequate Hydration State: stable & adequate Neuraxial Anesthesia: was administered and sensory block is resolving Anesthetic Complications: no major complications apparent
[2021-06-23] MEDS: OXYTOCIN 20 UNITS in LACTATED RINGER'S 1,000 ML IV SCH ×2 (11:12→19:31)
[2021-06-23] MEDS: SIMETHICONE 80 MG CHEW PO SCH ×3 (13:14→21:00)
[2021-06-23] MEDS: DOCUSATE SODIUM 100 MG CAP PO SCH (21:00)
[2021-06-23] MEDS: IBUPROFEN 600 MG TAB PO PRN (23:54)
[2021-06-24] MEDS ORDERED: PROMETHAZINE HCL 25 MG in SODIUM CHLORIDE 0.9% 50 ML IV PRN (02:14)
[2021-06-24] MEDS ORDERED: ONDANSETRON INJ 2 MG/ML 2 ML VIAL IV PRN (02:14)
[2021-06-24] MEDS ORDERED: KETOROLAC 30 MG/ML VIAL IV PRN (02:14)
[2021-06-24] MEDS: IBUPROFEN 600 MG TAB PO PRN ×4 (05:24→21:03)
[2021-06-24] MEDS: oxyCODONE/ACETAMINOPHEN 5mg/325mg TAB PO PRN ×4 (05:24→21:02)
--- NOTE | 2021-06-24 06:20 | Obstetrical Progress Note ---
Date of Service <Margarita StormDO - Last Filed: 06/24/21 06:51> June 24, 2021 Assessment & Plan <Margaritasushil Inman DO - Last Filed: 06/24/21 06:51> (1) Encounter for care and examination after delivery: 31 yo post op day1 from c/s due to prev. c/s, doing well. -Continue routine post care. -vital signs reviewed and WNL (Tmax 36.6) -Blood Type O- received rhogam x1, GBS-, Rubella immune -Encourage ambulation, monitor and control pain with Motrin, tylenol PRN, resume regular diet, monitor lochia -encourage breast feeding -hemoglobin 10.9 Day #:: 1 <Sara Montoya MD - Last Filed: 06/24/21 07:16> (1) Encounter for care and examination after delivery: Subjective <Margarita StormDO - Last Filed: 06/24/21 06:51> Ambulation: ambulating normally Voiding: no voiding problems Passing Gas:: Yes Diet Tolerance:: regular diet Lochia:: Small Feeding Type:: breast feeding Current Pain Level(1-10): 3 Review of Systems Denies fever, chills, sweats Denies shortness of breath, difficulty breathing, chest pain, palpitations, chest pressure. Denies breast pain. Denies dysuria. Denies headache or changes in vision. Physical Exam <Margarita StormDO - Last Filed: 06/24/21 06:51> General: Alert, oriented. No acute distress. Cardiac: Regular rate and rhythm, no murmurs/rubs/gallops. Respiratory: Clear to auscultation bilaterally a/p, no wheezes/rales/rhonchi. No increased work of breathing. Symmetrical chest rise. No respiratory distress. Abdomen: Soft, nontender, nondistended. Bowel sounds present. Uterus: Uterine fundus firm, palpable 1 cm below umbilicus. Surgical scar clean and healing well. Lower Extremities: No lower extremity edema or swelling. No deep calf pain. Eliane's negative bilaterally. Results & Data ([facility]) <Margarita Inman DO - Last Filed: 06/24/21 06:51> Vital Signs (Past 12 Hours) Vital Signs Temp Pulse Resp BP Pulse Ox 06/24/21 03:40 36.6 C 75 16 105/69 98 06/24/21 01:35 16 98 06/23/21 23:25 37.7 C H 92 H 16 116/70 99 06/23/21 22:25 16 96 06/23/21 21:45 16 98 06/23/21 21:01 16 95 06/23/21 19:35 36.9 C 86 16 116/68 99 06/23/21 19:15 16 98 <Sara Montoya MD - Last Filed: 06/24/21 07:16> Co-Signing Physician Notes Resident Physician Supervision Note: I interviewed and examined the patient. Discussed with Dr. Inman and agree with findings and plan as documented in the note. Any exceptions or clarifications are listed here: POD1 s/p rLTCS/BTL, doing well. VSS, exam benign and wnl, incision c/d/i. Continue routine pp care, likely d/c tomorrow Documented By: Sara Montoya MD Resident Activity Tracking <Margarita Inman DO - Last Filed: 06/24/21 06:51> Resident Involvement: Resident Care Provided Care Provided: Adult Hospital Medicine and OB Delivery
[2021-06-24] MEDS: DOCUSATE SODIUM 100 MG CAP PO SCH ×2 (08:01→21:03)
[2021-06-24] MEDS: PRENATAL VITAMIN 1 TAB PO SCH (08:01)
[2021-06-24] MEDS: SIMETHICONE 80 MG CHEW PO SCH ×4 (08:01→21:03)
[2021-06-24] MEDS: FERROUS SULFATE 325 MG TAB PO SCH (08:01)
[2021-06-24 08:37] LABS: Basophils # (auto) 0.02 K/uL (0-0.2); Basophils % (auto) 0.2 %; Eosinophils # (auto) 0.29 K/uL (0-0.5); Eosinophils % (auto) 2.7 %; Hematocrit (blood only) 32.5 % (37-47); Hemoglobin 10.7 g/dL (12.0-16.0); Immature Granulocytes # (auto) 0.03 K/uL (0.00-0.02); Immature Granulocytes % (auto) 0.3 %; Lymphocytes # (auto) 1.73 K/uL (1.2-3.4); Lymphocytes % (auto) 16.1 %; Mean Corpuscular Hemoglobin 28.1 pg (25-34); Mean Corpuscular Hgb Conc 32.9 g/dL (32-36); Mean Corpuscular Volume 85.3 fL (80-100); Mean Platelet Volume 12.6 fL (7.4-10.4); Monocytes % (auto) 7.4 %; Neutrophils # (auto) 7.87 K/uL (1.4-6.5); Neutrophils % (auto) 73.3 %; Platelet Count 202 K/uL (130-400); RDW Coefficient of Variation 14.6 % (11.5-14.5); RDW Standard Deviation 45.5 fL (36.4-46.3); Red Blood Count 3.81 M/uL (4.2-5.4); White Blood Count 10.74 K/uL (4.8-10.8)
[2021-06-24] MEDS ORDERED: bisacodyL 5 MG TABEC PO SCH (20:00)
[2021-06-25] MEDS: oxyCODONE/ACETAMINOPHEN 5mg/325mg TAB PO PRN ×2 (01:49→07:22)
[2021-06-25] MEDS: IBUPROFEN 600 MG TAB PO PRN ×2 (01:50→07:23)
[2021-06-25] MEDS: SIMETHICONE 80 MG CHEW PO SCH (07:22)
[2021-06-25] MEDS: DOCUSATE SODIUM 100 MG CAP PO SCH (07:22)
[2021-06-25] MEDS: FERROUS SULFATE 325 MG TAB PO SCH (07:22)
[2021-06-25] MEDS: PRENATAL VITAMIN 1 TAB PO SCH (07:23)
[2021-06-25 07:44] LABS: Hematocrit (blood only) 31.3 % (37-47); Hemoglobin 10.1 g/dL (12.0-16.0)
--- NOTE | 2021-06-25 08:10 | Obstetrical Progress Note ---
Date of Service June 25, 2021 Assessment & Plan (1) Encounter for care and examination after delivery: 31 yo post op day2 from c/s due to prev. c/s, doing well. -Continue routine post care. -vital signs reviewed and WNL (Tmax 36.6) -Blood Type O- received rhogam x1, GBS-, Rubella immune -Encourage ambulation, monitor and control pain with Motrin, tylenol PRN, resume regular diet, monitor lochia -encourage breast feeding -hemoglobin 10.9 Patient wishes home Subjective Ambulation: ambulating normally Voiding: no voiding problems Passing Gas:: Yes Diet Tolerance:: regular diet Results & Data ([facility]) Vital Signs (Past 12 Hours) Vital Signs Temp Pulse Resp BP Pulse Ox 06/24/21 23:50 98.1 F 62 16 116/73 98 06/24/21 20:50 98.1 F 76 16 114/76 98
[2021-06-25] MEDS ORDERED: bisacodyL 10 MG SUPP PR PRN (08:46)
--- NOTE | 2021-06-29 08:57 | Discharge Summary ---
Date of Service June 29, 2021 Admission Exam (Per Admitting) Constitutional WD/WN, vitals as above well developed and well nourished Respiratory normal respiratory effort, lungs clear to auscultation normal respiratory effort Cardiovascular RRR, no murmur, no edema Gastrointestinal (Abdomen) normal bowel sounds, soft, nontender, no hepatosplenomegaly Discharge Data Consultations 06/23/21 05:30 Consult Anesthesiology Stat Procedures Performed Operation Date: 06/23/21 07:30 Actual Procedures p Section in LD for live male at 0808 - Vania Nj MD, FACOG s Post Tubal Ligation(Bilateral) - Vania Nj MD, [facility] [place] Course (1) Encounter for care and examination after delivery: 31 yo post op day2 from c/s due to prev. c/s, doing well. -Continue routine post care. -vital signs reviewed and WNL (Tmax 36.6) -Blood Type O- received rhogam x1, GBS-, Rubella immune -Encourage ambulation, monitor and control pain with Motrin, tylenol PRN, resume regular diet, monitor lochia -encourage breast feeding -hemoglobin 10.9 Patient wishes home Coding Level of Care Code None Diagnoses Encounter for care and examination after delivery Z39.2
== END 2021-06-25 10:30 | disposition home or self-care (01) | DRG 785 ==
LOC: 4S1 05:29 → EDSTATUS 07:30 → 4E2 11:10
DX: O69.81X0 Labor and delivery complicated by cord around neck, without compression, not applicable or unspecified; O34.211 Maternal care for low transverse scar from previous cesarean delivery; Z37.0 Single live birth; Z3A.39 39 weeks gestation of pregnancy